=== PATIENT | female | born 1945 | race Two or more races ===

== ENCOUNTER 2017-10-13 19:26 | Emergency (ER) | payer OTHER ==
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
[2017-10-13 20:31] VITALS: BP 151/85
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
== END 2017-10-13 20:52 | disposition home or self-care (01) ==
LOC: ER 19:26
DX: R07.89 Other chest pain (principal); V89.2XXA Person injured in unspecified motor-vehicle accident, traffic, initial encounter; Y93.89 Activity, other specified; Y99.8 Other external cause status; Y92.410 Unspecified street and highway as the place of occurrence of the external cause
CPT/HCPCS: 71020; 99284

== ENCOUNTER 2017-10-19 09:36 | Emergency (ER) | payer OTHER ==
[~2017-10-19] VITALS: Ht 157.5 cm; Wt 49.4 kg
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
[2017-10-19 11:49] VITALS: BP 138/71
== END 2017-10-19 11:50 | disposition home or self-care (01) ==
LOC: ER 09:36
DX: S16.1XXD Strain of muscle, fascia and tendon at neck level, subsequent encounter (principal); M13.812 Other specified arthritis, left shoulder; M25.552 Pain in left hip; E11.9 Type 2 diabetes mellitus without complications; V89.2XXD Person injured in unspecified motor-vehicle accident, traffic, subsequent encounter
CPT/HCPCS: 72040; 73000; 73502; 99284-25

== ENCOUNTER → 2017-11-17 | Outpatient (CLI) | payer OTHER | END | disposition home or self-care (01) | LOC: US 11:24 | DX: Z01.818 Encounter for other preprocedural examination (principal); I25.10 Atherosclerotic heart disease of native coronary artery without angina pectoris; Z95.1 Presence of aortocoronary bypass graft; I65.23 Occlusion and stenosis of bilateral carotid arteries | CPT/HCPCS: 93880; 93970 ==

== ENCOUNTER → 2017-11-27 | Outpatient (CLI) | payer OTHER ==
[2017-11-28 00:12] LABS: MRSA BY PCR Negative (Negative)
== END | disposition home or self-care (01) ==
LOC: SURGPAT 10:53
DX: Z01.818 Encounter for other preprocedural examination (principal); I25.10 Atherosclerotic heart disease of native coronary artery without angina pectoris; N20.0 Calculus of kidney; Z95.1 Presence of aortocoronary bypass graft
CPT/HCPCS: 70450; 71250; 87641

== ENCOUNTER → 2017-12-29 | Outpatient (CLI) | payer OTHER | END | disposition home or self-care (01) | LOC: RAD 10:29 | DX: Z95.1 Presence of aortocoronary bypass graft (principal); M47.894 Other spondylosis, thoracic region | CPT/HCPCS: 71046 ==

== ENCOUNTER → 2018-12-07 | Outpatient (CLI) | payer OTHER ==
[2017-12-09 14:54] VITALS: BP 146/76
[~2018-12-07] MED LIST: ALEN70TA3 PO; ASPI-612 PO; ASPI325T8 PO; ERGO500027 PO; LISI2.5T PO; LOVA20TA2 PO; METF10007 PO; METO-239 PO; METO25TA4 PO; OXYC1TAB15 PO; SITA50TA PO
--- NOTE | 2018-12-07 12:51 | CARD ---
MR#: [id number] Date of Study: 12/07/2018 Ordering Physician: YU CAMPOS, Referring Physician: YU CAMPOS Tech: Tia Wilson RDCS APPROVED REPORT EXAM: Two-dimensional and M-mode echocardiogram with Doppler and color Doppler. Other Information Quality : AverageHR: 62bpm Rhythm : NSRTechnically limited study due to body habitus. INDICATION CAD 2D DIMENSIONS RVDd2.5 (2.9-3.5cm)Left Atrium(2D)4.0 (1.6-4.0cm) IVSd1.5 (0.7-1.1cm)Aortic Root(2D)2.8 (2.0-3.7cm) LVDd5.1 (3.9-5.9cm)LVOT Diameter2.1 (1.8-2.4cm) PWd0.8 (0.7-1.1cm)LVDs4.1 (2.5-4.0cm) FS (%) 20.2 %SV51.9 ml LVEF(%)41.0 (>50%) M-Mode DIMENSIONS Left Atrium(MM)3.67 (2.5-4.0cm)Aortic Root2.99 (2.2-3.7cm) Aortic Valve AoV Peak Josep.139.7cm/sAoV VTI26.4cm AO Peak GR.7.8mmHgLVOT Peak Josep.77.7cm/s AO Mean GR.4mmHgAVA (VMAX)1.97cm2 YASMEEN (VTI)2.00cm2 Mitral Valve MV E Ubeiepyu12.7cm/sMV DECEL [id number] MV A Esyonskn17.0cm/sE/A Ratio0.9 MV A [id number] Pulmonary Valve PV Peak Fkiuvmzr88.7cm/s Tricuspid Valve TR P. Lcgvseog096am/sRAP [id number] TR Peak Gr.[id number] LEFT VENTRICLE The left ventricle is normal size. Proximal septal thickening is noted. The systolic function is mild ly impaired. The Ejection Fraction is 45%. There basal to mid inferolateral and lateral carmona are mil d to moderately hypokinetic. Transmitral Doppler flow pattern is Grade I-abnormal relaxation pattern. RIGHT VENTRICLE The right ventricle is normal size. There is normal right ventricular wall thickness. The right ventr icular systolic function is normal. ATRIA The left atrium is borderline dilated. The right atrium size is normal. The interatrial septum is int act with no evidence for an atrial septal defect or patent foramen ovale as noted on 2-D or Doppler i maging. AORTIC VALVE The aortic valve is not well visualized. Doppler and Color Flow revealed trace aortic regurgitation. There is no significant aortic valvular stenosis. MITRAL VALVE Mitral annular calcification is mild. There is no evidence of mitral valve prolapse. There is no mitr al valve stenosis. Doppler and Color-flow revealed trace mitral regurgitation. TRICUSPID VALVE The tricuspid valve is normal in structure and function. Doppler and Color Flow revealed trace tricus pid regurgitation. The PA pressure was estimated at 28 mmHg. There is no tricuspid valve prolapse or vegetation. PULMONIC VALVE Pulmonic valve not well visualzied. GREAT VESSELS The aortic root is normal in size. The ascending aorta is normal in size. The IVC is normal in size a nd collapses >50% with inspiration. PERICARDIAL EFFUSION There is no evidence of significant pericardial effusion. Critical Notification Critical Value: No <Conclusion> The systolic function is mildly impaired. The Ejection Fraction is 45%. There basal to mid inferolateral and lateral carmona are mild to moderately hypokinetic. Signed by : Alvarado Mojica, Electronically Approved : 12/07/2018 12:48:36
== END | disposition home or self-care (01) ==
LOC: ECHO 11:30
PROVIDERS: ATTEND Internal Medicine Cardiovascular Disease
DX: I25.810 Atherosclerosis of coronary artery bypass graft(s) without angina pectoris (principal); R00.8 Other abnormalities of heart beat
CPT/HCPCS: 93306